=== PATIENT | female | born 1965 | race Caucasian/White ===

== ENCOUNTER 2022-11-13 08:03 | Outpatient (CLI) | payer BC, SELFPAY ==
--- NOTE | 2022-11-13 08:15 | CRLHL7_ITS ---
For Patients: As a result of the Cures Act, medical imaging exams and procedure reports are released immediately into your electronic medical record. You may view this report before your referring provider. If you have questions, please contact your health care provider. BILATERAL SCREENING MAMMOGRAM WITH COMPUTER-AIDED DETECTION AND TOMOSYNTHESIS TECHNIQUE: CC and MLO views were obtained. These mammographic images have been obtained using full-field digital technique. These mammographic images were interpreted with the benefit of computer-aided detection. Breast Tomosynthesis was used in this interpretation. COMPARISON FILM: 11/07/21, 10/28/20, 10/23/19. FINDINGS: There are scattered areas of fibroglandular density. IMPRESSION: There is no radiographic evidence for malignancy. ASSESSMENT: BI-RADS Category 1: Negative RECOMMENDATION: Routine screening mammogram in 1 year. A lay language report of this examination will be provided to the patient. Juan Fowler M.D. Diagnostic Radiologist [email or web address] Transcribed: 9:41 a.m. PT/Dictated by: Juan Fowler MD @ 11/13/2022 8:59:00 AM (Electronically Signed)
== END 2022-11-13 08:04 | disposition home or self-care (01) ==
LOC: MAMMO 08:04
PROVIDERS: PCP Family Medicine; Visit Provider Family Medicine
DX: Z12.31 Encounter for screening mammogram for malignant neoplasm of breast (principal)
CPT/HCPCS: 77063; 77067

== ENCOUNTER 2023-11-19 09:14 | Outpatient (CLI) | payer BC, SELFPAY ==
--- NOTE | 2023-11-19 09:15 | CRLHL7_ITS ---
For Patients: As a result of the Cures Act, medical imaging exams and procedure reports are released immediately into your electronic medical record. You may view this report before your referring provider. If you have questions, please contact your health care provider. BILATERAL SCREENING MAMMOGRAM WITH COMPUTER-AIDED DETECTION AND TOMOSYNTHESIS TECHNIQUE: CC and MLO views were obtained. These mammographic images have been obtained using full-field digital technique. These mammographic images were interpreted with the benefit of computer-aided detection. Breast Tomosynthesis was used in this interpretation. COMPARISON FILM: 11/13/22, 11/07/21, 10/28/20. FINDINGS: There are scattered areas of fibroglandular density IMPRESSION: There is no radiographic evidence for malignancy. ASSESSMENT: BI-RADS Category 2: Benign RECOMMENDATION: Routine screening mammogram in 1 year. A lay language report of this examination will be provided to the patient. Juan Fowler M.D. Diagnostic Radiologist [email or web address] Transcribed: 4:53 p.mFlavio cox/Dictated by: Juan Fowler MD @ 11/19/2023 12:13:00 PM (Electronically Signed)
== END 2023-11-19 09:15 | disposition home or self-care (01) ==
LOC: MAMMO 09:15
PROVIDERS: PCP Family Medicine; Visit Provider Family Medicine
DX: Z12.31 Encounter for screening mammogram for malignant neoplasm of breast (principal)
CPT/HCPCS: 77063; 77067

== ENCOUNTER 2024-11-20 08:13 | Outpatient (CLI) | payer BC, SELFPAY ==
--- OUTSIDE RECORDS SUMMARY | 2024-11-19 16:33 | XMS_ITS | Clinical Summary ---
Author Organization [facility] Address [place], [place] [address] Care Team Providers Care Reimbursement Counselor Name Role Phone Kallie Ortiz MD Primary Care Provide r Allergies Active Allergy Reactions Criticality Noted Date Comments Adhesive Tape Intolerance-Can't Take Low rash Amoxicillin-Pot Clavulanate Diarrhea 01/16/2024 Lanolin-Mineral Oil Intolerance-Can't Take Low rash Erythromycin Rash 10/04/2023 Ointment used in eyes Esomeprazole Rash 12/23/2023 Medications valACYclovir (VALTREX) 1 g tablet Take 1 tablet by mouth 2 times daily. 14 tablet 0 3 Active tazarotene 0.1% (TAZORAC) 0.1 % cream Apply a pea sized amount to entire face every other night, increase to every night as tolerated. Moisturize after. 3 9 Active sulfacetamide sodium-sulfur 8-4 % susp Wash face once daily. Lather and let sit before rinsing. 0 Active pseudoephedrine (Sudafed) 30 mg tabletIndications: Chronic cough Take one tablet twice daily 60 Tablet 1 4 Active thyroid, pork, (METEOROLOGY INSTRUCTOR Thyroid) 15 mg tabletIndications: Subclinical hypothyroidism Take 2 Tablets (30 mg) by mouth once daily. 180 Tablet 3 4 Active azithromycin (Zithromax Z-Grzegorz) 250 mg tabletIndications: Acute recurrent frontal sinusitis Take 500 mg today and then 250 mg days 2-5 6 Tablet 4 Active Active Problems Problem Noted Date Diagnosed Date Hypothyroidism (acquired) 09/21/2020 Subclinical hypothyroidism 03/27/2013 Irritable bowel syndrome Resolved Problems Problem Noted Date Diagnosed Date Resolved Date Hypothyroid 03/27/2013 03/27/2013 Encounters Date Type Department Care Team Description 10/08/2024 7:50 AM COMMUNITY ENGAGEMENT REPRESENTATIVE Office Visit [facility] [address] [place] [address] Kallie Ortiz MD Physical (58 yo Female/Feels she has a start of sinus infection.) 10/08/2024 Travel 09/30/2024 7:30 AM COMMUNITY ENGAGEMENT REPRESENTATIVE Orders Only [facility] [address] [place] [address] Lab, [place] [facility] 09/30/2024 Travel 09/28/2024 Orders Only [facility] [address] [place] [address] Kallie Ortiz MD Lab (Order update) 08/26/2024 Telephone [facility] [address] [place] [address] Kallie Ortiz MD Lab (Requesting Orders) from Last 3 Months Immunizations Name Administration Dates Next Due AMB INFLUENZA, IIV4 (AGE=>6M OS) MDV (Flu Clinic Only) 09/02/2019 AMB Influenza, IIV4 PF (=>6 mos Flulaval,Fluzone Fluarix)(Flu Clinic Only) 09/09/2014 COVID-19 vaccine (Moderna 100mcg/0.5mL) PF, MDV 11/01/2021,02/05/2021,01/08/2021 INFLUENZA, IIV3 PF (AGE >= 6 MO) 10/08/2024 Influenza A (H1N1), Inactiva lola (Age >=3 Years) 09/30/2009 Influenza, IIV3 (Age 6-35 mos) 09/24/2012 Influenza, IIV3 (Age >=3 years) 09/18/2013 Influenza, IIV4 10/04/2023, 2,09/08/2021,2019,09/27/2018,11/22/2017,08/30/2016,0 08/02/2016,09/16/2015,09/09/2014 Influenza,CCIIV4 PRESERV FREE 09/01/2019 Tdap 10/28/2018,07/07/2008 Zoster (Shingrix-RZV, recombinant) 12/06/2020, Family History Medical History Relation Name Comments Good Health Brother 2 Hypertension Father Diabetes Mother Hyperlipidemia Mother Hypertension Mother Osteoporosis Mother Good Health Sister 2 Relation Name Status Comments Brother 1 Alive Brother 2 Father Alive Maternal Grandfather (Age 50) un known Maternal Grandmother (Age 90) br [place] Mother Alive Paternal Grandfather Paternal Grandmother Sister 1 Alive Sister 2 Social History Tobacco Use Types Packs/Day Years Used Date Smoking Tobacco: Never Smokeless Tobacco: Never Tobacco Cessation:Counseling Given: Yes Alcohol Use Standard Drinks/Week Comments Not Currently 0 (1 standard drink = 0.6 oz pur e alcohol) [facility] Utilities Answer Date Recorded Do you have trouble paying f or utilities (for example, heat, electricity, water, phone)? Yes 10/08/2024 PHQ-2 Answer Date Recorded PHQ-2 TOTAL SCORE 0 10/08/2024 Social Connections Answer Date Recorded Do you often feel lonely or isolated from those around you? 0 10/08/2024 Financial Resource Strain Answer Date R ecorded Difficulty of Paying Living Expenses 3 10/08/2024 Difficulty of Paying Living Expenses Not on file 10/08/2024 Food Insecurity Answer Date Recorded Do you worry your food will run out before you are able to buy more? 1 10/08/2024 Transportation Needs Answer Date Record ed Does lack of transportation keep you from medica l appointments? 1 10/08/2024 Does lack of transportation keep you from work, meetings or getting things that you need? 1 10/08/2024 Housing Stability Answer Date Recorded What is your housing situation today? 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 Not on file Not on file Not o n file Obstetrics History Last Filed Vital Signs Vital Sign Reading Time Taken Comments Blood Pressure 119/81 10/08/2024 7:59 AM COMMUNITY ENGAGEMENT REPRESENTATIVE Pulse 68 10/08/2024 7:59 AM COMMUNITY ENGAGEMENT REPRESENTATIVE Temperature 36.8 C (98.2 F) 01/07/2024 9:13 AM COMMUNITY ENGAGEMENT REPRESENTATIVE Respiratory Rate 16 12/09/2018 11:54 AM COMMUNITY ENGAGEMENT REPRESENTATIVE Oxygen Saturation 100% 10/08/2024 7:59 AM COMMUNITY ENGAGEMENT REPRESENTATIVE Inhaled Oxygen Concentration - - Weight 70.3 kg (155 lb) 10/08/2024 7:59 AM COMMUNITY ENGAGEMENT REPRESENTATIVE Height 169.8 cm (5' 6.85) 10/08/2024 7:59 AM CS T Body Mass Index 24.39 10/08/2024 7:59 AM COMMUNITY ENGAGEMENT REPRESENTATIVE Plan of Treatment Health Maintenance Due Date Last Done Comments HIV for age 15-65 1982 Pneumococcal series for age 50+ (1 of 1 - PCV) 2017 COVID-19 vaccine series ( season) 2024 11/01/2021, 02/05/2021, 01/08/2021 Mammogram for age 45-75 11/19/2024 11/19/19, 11/13/2022, 11/07/2021, Additional history exists BMI (ht and wt on same day) for age 18+ 10/08/2025 10/08/2024, 10/04/2023, 09/28/2022, Additional history exists Depression screening for age 12+ 10/08/2025 10/08/2024, 10/04/2023, 09/28/2022, Additional history exists Colonoscopy through age 75 11/04/2027 11/04/2017, Tetanus booster 10/28/2028 10/28/2018, 07/07/2008 Lipids for age 45-75 09/30/2029 09/30/2024, 09/30/2023, 09/27/2022, Additional history exists Tdap Completed 10/28/2018, 07/07/2008 Zoster (shingles) series for age 50+ Completed 12/06/2020, 08/17/2020 Hepatitis C screening for age 18-79 Completed 09/27/2022 Influenza for age 50-64 Completed 10/08/20 24, 10/04/2023, 09/28/2022, Additional history exists Pneumococcal series for age 6-49 Aged Out No longer eligible based on patient's age to complete this topic Procedures Procedure Name Priority Date/Time Associated Diagnosis Comments T3,TOTAL Routine 09/30/2024 7:30 AM COMMUNITY ENGAGEMENT REPRESENTATIVE Subclinical hypothyroidism T4,FREE Routine 09/30/2024 7:30 AM COMMUNITY ENGAGEMENT REPRESENTATIVE Subclinical hypothyroidism TSH Routine 09/30/2024 7:30 AM COMMUNITY ENGAGEMENT REPRESENTATIVE Subclinical hypothyroidism COMP METABOLIC PANEL Routine 09/30/2024 7:30 AM COMMUNITY ENGAGEMENT REPRESENTATIVE Enlarged pancreas LIPID PANEL W REFLEX MEASURED LDL Routine 09/30/2024 7:30 AM COMMUNITY ENGAGEMENT REPRESENTATIVE Lipid screening SCAN-MAMMOGRAPHY REPORT 11/19/2023 12:00 AM COMMUNITY ENGAGEMENT REPRESENTATIVE ANTI HCV Routine 09/27/2022 7:41 AM COMMUNITY ENGAGEMENT REPRESENTATIVE Need for hepatitis C screening test SCAN-COLONOSCOPY 11/04/2017 12:0 0 AM COMMUNITY ENGAGEMENT REPRESENTATIVE from Last 3 Months or Most Recently Relevant to Health Maintenance Results * (ABNORMAL) LIPID PANEL W REFLEX MEASURED LDL (09/30/2024 7:30 AM COMMUNITY ENGAGEMENT REPRESENTATIVE) CHOLESTEROL, TOTAL 221(H) <200 mg/dL [facility] HDL CHOLESTEROL 81 > OR = 50 mg/dL [facility] TRIGLYCERIDES 83 <150 mg/dL [facility] LDL-CHOLESTEROL 122(H) mg/dL (calc) [facility] Comment: Reference range: <100 Desirable range <100 mg/dL for primary prevention; <70 mg/dL for patients with CHD or diabetic patients with > or = 2 CHD risk factors. LDL-C is now calculated using the Zayda calculation, which is a validated novel method providing better accuracy than the Friedewald equation in the estimation of LDL-C. Malik QUILES et al. AKI. 2013;310(19): 0796-2651 (http://education.[employer].Jumbas/faq/BTB123) CHOL/HDLC RATIO 2.7 <5.0 (calc) [facility] NON HDL CHOLESTEROL 140(H) <130 mg/dL (calc) [facility] Comment: For patients with diabetes plus 1 major ASCVD risk factor, treating to a non-HDL-C goal of <100 mg/dL (LDL-C of <70 mg/dL) is considered a therapeutic option. Blood BLOOD SPECIMEN / Unknown 09/30/2024 7:30 AM COMMUNITY ENGAGEMENT REPRESENTATIVE 09/30/2024 7:31 AM COMMUNITY ENGAGEMENT REPRESENTATIVE Narrative [facility] - 10/01/2024 4:05 AM COMMUNITY ENGAGEMENT REPRESENTATIVE FASTING:YES FASTING: YES Kallie Ortiz MD CHEMISTRY Final Result Performing Organization Address City/[facility]/ZIP Co de Phone Number [employer] [facility] [address] [place] [place] [address], [place] [phone] [facility] [address] [place] [address] * TSH (09/30/2024 7:30 AM COMMUNITY ENGAGEMENT REPRESENTATIVE) Pathologist [facility] TSH 2.14 0.40 - 4.50 mIU/L [facility] Blood BLOOD SPECIMEN / Unknown 09/30/2024 7:30 AM COMMUNITY ENGAGEMENT REPRESENTATIVE 09/30/2024 7:31 AM COMMUNITY ENGAGEMENT REPRESENTATIVE Narrative [facility] - 10/01/2024 4:15 AM COMMUNITY ENGAGEMENT REPRESENTATIVE FASTING:YES FASTING: YES Kallie Ortiz MD CHEMISTRY Final Result [facility] [employer] [facility] [address] [place] [address], [place] [phone] [facility] [address] [address] * T3,TOTAL (09/30/2024 7:30 AM COMMUNITY ENGAGEMENT REPRESENTATIVE) T3, TOTAL 110 76 - 181 ng/dL [facility] Blood BLOOD SPECIMEN / Unknown 09/30/2024 7:30 AM COMMUNITY ENGAGEMENT REPRESENTATIVE 09/30/2024 7:31 AM COMMUNITY ENGAGEMENT REPRESENTATIVE Narrative [facility] - 10/01/2024 4:15 AM COMMUNITY ENGAGEMENT REPRESENTATIVE FASTING:YES FASTING: YES Kallie Ortiz MD CHEMISTRY Final Result [employer] [facility] [address] [place] [address], [place] [phone] [facility] [address] [place] [address] * T4,FREE (09/30/2024 7:30 AM COMMUNITY ENGAGEMENT REPRESENTATIVE) [facility] T4, FREE 0.9 0.8 - 1.8 ng/dL [facility] Blood BLOOD SPECIMEN / Unknown 09/30/2024 7:30 AM COMMUNITY ENGAGEMENT REPRESENTATIVE 09/30/2024 7:31 AM COMMUNITY ENGAGEMENT REPRESENTATIVE Narrative [employer] - 10/01/2024 4:15 AM COMMUNITY ENGAGEMENT REPRESENTATIVE FASTING:YES FASTING: YES Kallie Ortiz MD CHEMISTRY Final Result [employer] [facility] [address] [place] [address], [facility] [address] [place] [address] * COMP METABOLIC PANEL (09/30/2024 7:30 AM COMMUNITY ENGAGEMENT REPRESENTATIVE) Pathologist [facility] GLUCOSE 81 65 - 99 mg/dL [facility] Comment: Fasting reference interval UREA NITROGEN (BUN) 14 7 - 25 mg/dL [facility] CREATININE 0.94 0.50 - 1.03 mg/dL [facility] EGFR 71 > OR = 60 mL/min/1. 73m2 [facility] BUN/CREATININE RATIO SEE NOTE: (calc) [facility] Comment: Not Reported: BUN and Creatinine are within reference range. SODIUM 140 135 - 146 mmol/L [facility] POTASSIUM 5.0 3.5 - 5.3 mmol/L [facility] CHLORIDE 104 98 - 110 mmol/L [facility] CARBON DIOXIDE 32 20 - 32 mmol/L [facility] CALCIUM 9.4 8.6 - 10.4 mg/dL [facility] PROTEIN, TOTAL 6.8 6.1 - 8.1 g/dL [facility] ALBUMIN 4.4 3.6 - 5.1 g/dL [facility] GLOBULIN 2.4 1.9 - 3.7 g/dL (calc) [facility] ALBUMIN/GLOBULIN RATIO 1.8 1.0 - 2.5 (calc) [facility] BILIRUBIN, TOTAL 0.5 0.2 - 1.2 mg/dL [facility] ALKALINE PHOSPHATASE 60 37 - 153 U/L [facility] AST 21 10 - 35 U/L [facility] ALT 14 6 - 29 U/L [facility] Blood BLOOD SPECIMEN / Unknown 09/30/2024 7:30 AM COMMUNITY ENGAGEMENT REPRESENTATIVE 09/30/2024 7:31 AM COMMUNITY ENGAGEMENT REPRESENTATIVE Narrative [facility] - 10/01/2024 4:05 AM COMMUNITY ENGAGEMENT REPRESENTATIVE FASTING:YES FASTING: YES us Kallie Ortiz MD CHEMISTRY Final Result [facility] [address] [place] [address], [facility] [address] [place] [address] * SCAN-MAMMOGRAPHY REPORT (11/19/2023 12:00 AM COMMUNITY ENGAGEMENT REPRESENTATIVE) Anatomical Region Laterality Modality Other us Scanner OTHER Final Result * ANTI HCV (09/27/2022 7:41 AM COMMUNITY ENGAGEMENT REPRESENTATIVE) HEPATITIS C ANTIBODY Non-React angie Non-React angie 09/28/2022 3:57 PM COMMUNITY ENGAGEMENT REPRESENTATIVE [facility] Comment:Antibodies to HCV no t detected; does not exclude the possibility of exposure to HCV. Blood BLOOD SPECIMEN / Unknown Venipuncture / Unknown 09/27/2022 7:41 AM COMMUNITY ENGAGEMENT REPRESENTATIVE 09/27/2022 7:41 AM COMMUNITY ENGAGEMENT REPRESENTATIVE us Kallie Ortiz MD SEND OUTS Final Result [facility] [address] [place] [address], [place] * SCAN-COLONOSCOPY (11/04/2017 12:00 AM COMMUNITY ENGAGEMENT REPRESENTATIVE) us Scanner OTHER Final Result from Last 3 Months or Most Recently Relevant to Health Maintenance Insurance [facility] Care Teams Reimbursement Counselor Relationship Specialty Start Date End Date Kallie Ortiz MD [address] [place] [address] PCP - General Family Practice 07/31/13
--- NOTE | 2024-11-20 08:15 | CRLHL7_ITS ---
For Patients: As a result of the Century Cures Act, medical imaging exams and procedure reports are released immediately into your electronic medical record. You may view this report before your referring provider. If you have questions, please contact your health care provider. BILATERAL SCREENING MAMMOGRAM WITH COMPUTER-AIDED DETECTION AND TOMOSYNTHESIS TECHNIQUE: CC and MLO views were obtained. These mammographic images have been obtained using full-field digital technique. These mammographic images were interpreted with the benefit of computer-aided detection. Breast tomosynthesis was used in this interpretation. COMPARISON FILM: 11/19/23, 11/13/22, 11/07/21. FINDINGS: There are scattered areas of fibroglandular density. IMPRESSION: There is no radiographic evidence for malignancy. ASSESSMENT: BI-RADS Category 1: Negative RECOMMENDATION: Routine screening mammogram in 1 year. A lay language report of this examination will be provided to the patient. JUAN THOMPSON M.D. Diagnostic Radiologist [email or web address] Transcribed: 1:[address]/Dictated by: Juan Thompson MD @ 11/20/2024 12:23:00 PM (Electronically Signed)
== END 2024-11-20 08:14 | disposition home or self-care (01) ==
PROVIDERS: PCP Family Medicine; Visit Provider Family Medicine
DX: Z12.31 Encounter for screening mammogram for malignant neoplasm of breast (principal)
CPT/HCPCS: 77063; 77067